=== PATIENT | male | born 1960 | race Two or more races ===

== ENCOUNTER 2018-09-16 13:34 | Inpatient (IN) | payer SELFPAY ==
[~2018-09-16] VITALS: Ht 170.2 cm; Wt 69.4 kg
[2018-09-16] MEDS ORDERED: HEPARIN SODIUM 1,000 UNIT/1ML VIAL IV ONE (13:55)
[2018-09-16] MEDS ORDERED: ONDANSETRON HCL 4MG/2ML INJ IV STA (13:55)
[2018-09-16] MEDS ORDERED: ASPIRIN 81MG TABLET PO ONE ×2 (14:00→14:15)
[2018-09-16] MEDS ORDERED: FENTANYL CITRATE/PF 50MCG/ML 2ML VIAL IV ONE (14:00)
[2018-09-16] MEDS ORDERED: NITROGLYCERIN OINT 1GM/INCH UDPKT TD ONE (14:00)
[2018-09-16] MEDS ORDERED: LIDOCAINE HCL 1% 20ML VIAL (Pyxis) INJ ONE (14:14)
[2018-09-16] MEDS ORDERED: IODIXANOL 320MG/ML 100 ML BOTTLE IV ONE (14:15)
[2018-09-16] MEDS ORDERED: HEPARIN 5000 UNITS/ML VIAL IV ONE (14:15)
[2018-09-16 14:18] LABS: HEMATOCRIT. 44.2 % (42.0-52.0); HEMOGLOBIN. 15.4 g/dL (14.0-18.0); MEAN PLATELET VOLUME 9.3 fl (7.4-10.4); PLATELET 239 x1000/uL (130-400); RED BLOOD CELL COUNT 4.81 mill/uL (4.7-6.1); RED CELL DISTRIBUTION WIDTH 12.6 % (11.6-14.6)
[2018-09-16] MEDS ORDERED: ASPIRIN/SOD BICARB/CITRIC ACID 324MG TAB EFF ONE (14:19)
[2018-09-16 14:23] LABS: CHLORIDE 98 mEq/L (98-107)
[2018-09-16] MEDS ORDERED: FENTANYL CITRATE/PF 50MCG/ML 2ML VIAL ONE (14:26)
[2018-09-16] MEDS ORDERED: MIDAZOLAM HCL 2 MG/2 ML VIAL ONE (14:26)
[2018-09-16 14:32] LABS: CREATINE KINASE 255 IU/L (39-308)
[2018-09-16 14:35] LABS: CREATINE KINASE MB FRACTION 2.9 ng/mL (0.5-3.6)
[2018-09-16] MEDS ORDERED: IOHEXOL-300 100 ML BOTTLE ONE (14:39)
[2018-09-16] MEDS ORDERED: METOPROLOL TARTRATE 5MG/5ML VIAL IV ONE (14:41)
[2018-09-16] MEDS ORDERED: CLOPIDOGREL 75MG TABLET ONE (14:59)
[2018-09-16] MEDS ORDERED: ACETAMINOPHEN 325MG TABLET PO PRN (15:15)
[2018-09-16] MEDS ORDERED: ATROPINE SULFATE 1MG/10ML SYR IV PRN (15:15)
[2018-09-16] MEDS ORDERED: ONDANSETRON HCL 4MG/2ML INJ IV PRN (15:15)
[2018-09-16] MEDS ORDERED: CLOPIDOGREL 75MG TABLET PO NR (15:15)
[2018-09-16] MEDS: CARVEDILOL 3.125 MG TABLET PO SCH ×2 (15:15→21:16)
[2018-09-16] MEDS ORDERED: MORPHINE SULFATE 4 MG/ML CPJ (NOT FOR IM USE) IV PRN (15:15)
[2018-09-16] MEDS ORDERED: SODIUM CHLORIDE 0.45% 1,000 ML IV ONE (15:15)
[2018-09-16 15:24] LABS: PLATELET ESTIMATE NORMAL
[2018-09-16 15:50] VITALS: BP 139/94
[2018-09-16 18:00] VITALS: BP 145/105
[2018-09-16 18:18] LABS: INR 1.1; PARTIAL THROMBOPLASTIN TIME 53.3 sec (23.4-31.0); PROTHROMBIN TIME 11.3 sec (9.1-11.1)
[2018-09-16 20:00] VITALS: BP 147/87
[2018-09-16] MEDS: ATORVASTATIN CALCIUM 20MG TABLET PO SCH (21:16)
[2018-09-16] MEDS: ENALAPRIL 2.5MG TABLET PO SCH (21:17)
[2018-09-16 22:00] VITALS: BP 148/96
[2018-09-17] VITALS (13 sets, daily range): BP systolic 95–142; BP diastolic 59–93
[2018-09-17 06:53] LABS: CHLORIDE 94 mEq/L (98-107)
[2018-09-17 07:17] LABS: BASOPHILS % 0.1 % (0.0-2.0); EOSINOPHILS % 0.1 % (0.0-5.0); HEMATOCRIT. 40.8 % (42.0-52.0); HEMOGLOBIN. 14.2 g/dL (14.0-18.0); MEAN CORPUSCULAR HEMOGLOBIN 31.7 pg (28.0-32.0); MEAN PLATELET VOLUME 8.7 fl (7.4-10.4); MONOCYTES % 6.8 % (2.0-8.0); PLATELET 185 x1000/uL (130-400); RED BLOOD CELL COUNT 4.49 mill/uL (4.7-6.1); RED CELL DISTRIBUTION WIDTH 12.6 % (11.6-14.6)
[2018-09-17] MEDS: ASPIRIN 325MG TABLET PO SCH (08:33)
[2018-09-17] MEDS: CARVEDILOL 3.125 MG TABLET PO SCH (08:33)
[2018-09-17] MEDS: ENALAPRIL 2.5MG TABLET PO SCH ×2 (08:34→20:52)
[2018-09-17] MEDS: CLOPIDOGREL 75MG TABLET PO SCH (08:34)
[2018-09-17] MEDS ORDERED: CLONIDINE 0.1MG TABLET PO PRN (10:00)
[2018-09-17] MEDS: ATORVASTATIN CALCIUM 20MG TABLET PO SCH (20:51)
[2018-09-17] MEDS: CARVEDILOL 6.25 MG TABLET PO SCH (20:52)
[2018-09-18] VITALS (12 sets, daily range): BP systolic 98–131; BP diastolic 59–94
[2018-09-18 07:27] LABS: BASOPHILS % 0.3 % (0.0-2.0); EOSINOPHILS % 0.7 % (0.0-5.0); HEMATOCRIT. 42.8 % (42.0-52.0); HEMOGLOBIN. 14.9 g/dL (14.0-18.0); LYMPHOCYTES % 14.2 % (20.0-50.0); MEAN CORPUSCULAR HEMOGLOBIN 31.8 pg (28.0-32.0); MEAN CORPUSCULAR VOLUME 91.6 fL (80.0-94.0); MEAN PLATELET VOLUME 8.9 fl (7.4-10.4); MONOCYTES % 13.4 % (2.0-8.0); NEUTROPHILS % 71.4 % (40.0-76.0); PLATELET 190 x1000/uL (130-400); RED BLOOD CELL COUNT 4.68 mill/uL (4.7-6.1); RED CELL DISTRIBUTION WIDTH 12.8 % (11.6-14.6)
[2018-09-18 07:56] LABS: CHLORIDE 104 mEq/L (98-107)
[2018-09-18 08:03] LABS: LDL CHOLESTEROL 60 mg/dL (5-100)
[2018-09-18 08:04] LABS: HDL CHOLESTEROL 47 mg/dL (40-59)
[2018-09-18] MEDS: ASPIRIN 325MG TABLET PO SCH (08:18)
[2018-09-18] MEDS: CLOPIDOGREL 75MG TABLET PO SCH (08:18)
[2018-09-18] MEDS: CARVEDILOL 6.25 MG TABLET PO SCH ×2 (08:18→21:09)
[2018-09-18] MEDS: ENALAPRIL 2.5MG TABLET PO SCH ×2 (08:19→21:09)
[2018-09-18] MEDS: ATORVASTATIN CALCIUM 20MG TABLET PO SCH (21:08)
[2018-09-19] VITALS (8 sets, daily range): BP systolic 87–121; BP diastolic 55–75
[2018-09-19] MEDS: ASPIRIN 325MG TABLET PO SCH (08:38)
[2018-09-19] MEDS: CLOPIDOGREL 75MG TABLET PO SCH (08:39)
[2018-09-19] MEDS: ENALAPRIL 2.5MG TABLET PO SCH (08:39)
[2018-09-19] MEDS: CARVEDILOL 6.25 MG TABLET PO SCH (08:39)
[2018-09-19 09:33] LABS: BASOPHILS % 0.5 % (0.0-2.0); HEMATOCRIT. 41.8 % (42.0-52.0); HEMOGLOBIN. 14.6 g/dL (14.0-18.0); LYMPHOCYTES % 15.8 % (20.0-50.0); MEAN CORPUSCULAR HEMOGLOBIN 31.9 pg (28.0-32.0); MEAN CORPUSCULAR VOLUME 91.5 fL (80.0-94.0); MEAN PLATELET VOLUME 8.6 fl (7.4-10.4); MONOCYTES % 12.7 % (2.0-8.0); PLATELET 186 x1000/uL (130-400); RED BLOOD CELL COUNT 4.57 mill/uL (4.7-6.1); RED CELL DISTRIBUTION WIDTH 12.6 % (11.6-14.6)
[2018-09-19 09:40] LABS: CHLORIDE 104 mEq/L (98-107)
== END 2018-09-19 13:42 | disposition home or self-care (01) | DRG 174 ==
LOC: ER 13:34 → 3WST 14:04 → EDBEDREQ 14:05 → EDBEDREQSVC 14:05
PROVIDERS: ADMIT Internal Medicine; ATTEND Internal Medicine
PROC: 02703ZZ Dilation of Coronary Artery, One Artery, Percutaneous Approach (ICD-10-PCS; principal; 2018-09-16)
PROC: 4A023N7 Measurement of Cardiac Sampling and Pressure, Left Heart, Percutaneous Approach (ICD-10-PCS; 2018-09-16)
PROC: B2111ZZ Fluoroscopy of Multiple Coronary Arteries using Low Osmolar Contrast (ICD-10-PCS; 2018-09-16)
DX: I21.09 ST elevation (STEMI) myocardial infarction involving other coronary artery of anterior wall (principal); J96.00 Acute respiratory failure, unspecified whether with hypoxia or hypercapnia; I50.9 Heart failure, unspecified; I11.0 Hypertensive heart disease with heart failure; I24.9 Acute ischemic heart disease, unspecified; I25.10 Atherosclerotic heart disease of native coronary artery without angina pectoris; I25.5 Ischemic cardiomyopathy; D72.829 Elevated white blood cell count, unspecified; Z82.49 Family history of ischemic heart disease and other diseases of the circulatory system; Z98.61 Coronary angioplasty status
CPT/HCPCS: 36415; 71045; 80048; 80061; 82550; 82553; 82962; 83735; 83880; 84443; 84484; 85347; 86850; 86900; 92920; 93005; 93306; 93458; 96374; 99291; C1725; C1769; C1887; C1893; J1644; J2250; J2405; J3010; J3490; Q9967